=== PATIENT | male | born 1965 | race Caucasian/White ===

== ENCOUNTER 2018-10-27 15:28 | Inpatient (IN) ==
[2018-10-27] MEDS ORDERED: *HR* Labetalol 20 MG/4 ML SYRINGE IVP ONE (16:23)
[2018-10-27] MEDS ORDERED: Isovue-370 500 ML BOTTLE IVP ONE (16:23)
--- NOTE | 2018-10-27 16:37 | Emergency Department Note ---
Disposition Clinical Impression: Hypertensive urgency, Hypertensive urgency, malignant Disposition: Admitted As Inpatient Condition: Fair Referrals: NONE,PCP [Primary Care Provider] - Forms: ED Satisfaction Letter, Work/School Release Time of Disposition: 19:26 General Adult HPI - General Chief complaint: ED General Medical Stated complaint: HTN sent from PCP Time Seen by Provider: 10/27/18 16:05 Source: patient Limitations: no limitations Nursing Notes Reviewed: Yes Vital Signs Reviewed: Yes - History of Present Illness HPI Narrative: Patient presented emergency department with chief complaint of high blood pressure. The patient states that for about a week and a half he had noticed some discomfort in between his shoulder blades he states it first started when he was on the treadmill and working out, he had pain peripherally by his right shoulder blade he thought maybe he had just tweaked it a little bit. He states that over the last week and a half he has continued to have pain radiating between his shoulder blades which she cannot really associate with any thing. The patient states that he has even woken up from sleep because of pain between his shoulder blades. The patient states that he has had no chest pain no shortness of breath no exertional symptoms and in fact has been working out regularly without developing any symptoms during this. The patient denies headache neck pain dizziness weakness speech difficulty abdominal pain black or bloody stool leg pain and leg swelling. He does report that he has had some developing mild paresthesias in all of his extremities which just seems to come and go. He states he cannot associate that with anything he states he just feels like a brief pins and needle sensation in random spots. He states that he decided to go get it checked out today, and he went to urgent care because he does not have a doctor does not take any medications, and states that when he got there they checked his blood pressure and multiple readings were over 230/120. He states he has never had anything like that in the past and that is something very unusual for him. No family history of aneurysms no family history of young people with heart disease. He is not a smoker. He does not drink out all daily and does not use street drugs. Denies any swelling of the lower extremities denies any recent travel denies any dietary changes or increased caffeine intake. 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 Review of Systems: As Per HPI Past Medical History - Past Medical History Medical history: Reports: GERD, hypertension - Social History Smoking Status: Never smoker Smokeless Tobacco Status: No Alcohol use: Reports: occasionally Physical Exam - General Limitations: no limitations General appearance: alert, in no apparent distress - Head Head exam: atraumatic, normocephalic - Eye Eye exam: Present: normal appearance, PERRL, EOMI - ENT ENT exam: normal exam, normal oropharynx - Neck Neck exam: Present: normal inspection, full ROM, trachea midline. Absent: tenderness, meningismus, thyromegaly - Chest Chest inspection: Present: normal inspection, symmetric chest wall rise. Absent: tenderness - Respiratory Respiratory exam: Present: normal lung sounds bilaterally. Absent: respiratory distress, wheezes - Cardiovascular Cardiovascular exam: Present: regular rate, normal rhythm, normal heart sounds. Absent: systolic murmur, diastolic murmur, rubs, gallop, JVD - Abdominal Exam Abdominal exam: Present: soft, Non-Tender, other (No palpable or pulsatile mass) - Extremities Exam Extremities exam: Present: normal inspection, full ROM, normal capillary refill. Absent: tenderness, pedal edema - Expanded Lower Extremity Exam Neurovascular/Tendon exam: Present: normal capillary refill. Absent: pulse deficit, motor deficit, sensory deficit, tendon deficit, extremity cold to touch, pallor - Back Exam Back exam: Present: normal inspection, full ROM, other (Unable to reproduce reported discomfort in between shoulder blades with palpation or with movement of his extremities or back). Absent: tenderness, CVA tenderness (R), CVA tenderness (L) - Neurological Exam Neurological exam: Present: alert, oriented X3, CN II-XII intact, normal gait - Psychiatric Psychiatric exam: Present: normal affect, normal mood - Skin Skin exam: Present: warm, dry, intact, normal color. Absent: rash, cyanosis, diaphoresis - Other Other exam information: Blood pressures were checked by myself on both extremities of the upper extremities, and are both significantly elevated, right side was 239/120, left side was 245/124, no significant difference Course Vital Signs Temperature 97.7 F 10/27/18 15:32 Pulse Rate 70 10/27/18 15:32 Respiratory Rate 16 10/27/18 15:32 Blood Pressure 230/124 10/27/18 15:32 O2 Sat by Pulse Oximetry 97 10/27/18 15:32 Temperature 97.7 F 10/27/18 15:32 Pulse Rate 65 10/27/18 18:06 Respiratory Rate 16 10/27/18 18:06 Blood Pressure 240/128 10/27/18 19:17 O2 Sat by Pulse Oximetry 97 10/27/18 18:06 Oxygen Delivery Oxygen Delivery Room Air Medical Decision Making - MDM Narrative Medical decision making narrative: Patient is no chest pain or shortness of breath no dizziness to weakness he does have nonreproducible discomfort in between his shoulder blades, and secondary to significant hypertension, a CT aortic dissection protocol was ordered he however states that the pain is really not that bad currently states it is there but he is nontoxic in appearance is not diaphoretic is awake E smiling he is interactive, clinically less suspicious thereof however with significant hypertension and pain between his shoulder blades, evaluation of the aorta was felt to be prudent at this time. His EKG as interpreted by myself was a normal sinus rhythm, no evidence of acute ST elevation or ST depression or T-wave inversion, single Q-wave in lead 3, no Q waves in 2 or aVF, when compared to prior EKG from 03/23/2009, there is no significant difference. Intervals are within acceptable limits QTc is 409 QRS duration 106 [place] interval of 180. Patient had an IV placed, no aspirin, secondary to concerns for potential aortic pathology. Patient given IV labetalol for hypertension. CBC basic metabolic profile cardiac enzymes were all within acceptable limits. CT dissection protocol showed no aneurysm no dissection no acute findings as interpreted by radiology. After IV labetalol, patient initially had some improvement of blood pressure, down to 199/102, however his blood pressure again began to increase I gave him oral lisinopril hydrochlorothiazide, blood pressures remained initially still persistently elevated although slightly improved again in the 199/92, followed by a 200/104, however blood pressures again began to increase to 248/120, he was then initiated on a Cardene drip for malignant hypertension/accelerated hypertension and was admitted to the hospital for further evaluation and manage ment. Total critical care time as provided by myself excluding any procedures performed is 30 minutes - Lab Data Lab results reviewed: Yes I reviewed the patient's lab results. Result diagrams: 10/27/18 16:44 10/27/18 16:44 Lab Results 10/27/18 10/27/18 Range/Units 16:44 16:44 WBC 7.3 (4.3-11.1) K/mcL RBC 5.13 (4.19-5.50) M/mcL Hgb 15.6 (12.9-16.9) g/dL Hct 46.2 (37.5-50.1) % MCV 90.1 (83.0-100.0) fL MCH 30.4 (28.0-33.3) pg MCHC 33.8 (31.6-35.5) g/dL RDW 13.4 (11.5-14.5) % Plt Count 226 (140-400) K/mcL MPV 9.5 (9.4-12.4) fL Immature Gran % 0.3 (0-4) % Seg Neutrophils % 48.2 % Lymphocytes % 37.1 % Monocytes % 10.8 % Eosinophils % 2.6 % Basophils % 1.0 % Neutrophils # 3.5 (1.6-8.9) K/mcL Lymphocytes # 2.7 (0.6-4.6) K/mcL Monocytes # 0.8 (0.0-1.3) K/mcL Eosinophils # 0.2 (0.0-0.6) K/mcL Basophils # 0.1 (0.0-0.2) K/mcL Sodium 137 (136-145) mEq/L Potassium 3.6 (3.5-5.1) mEq/L Chloride 102 (98-107) mEq/L Carbon Dioxide 27 (23-29) mEq/L BUN 18 (6-20) mg/dL Creatinine 1.00 (0.70-1.30) mg/dL Est GFR ( Amer) > 60 (> 60) Est GFR (Non-Af Amer) > 60 (> 60) BUN/Creatinine Ratio 18 (6-26) Glucose 111 H (70-105) mg/dL Calculated Osmolality 287 (280-300) Calcium 9.5 (8.6-10.3) mg/dL Troponin I < 0.03 (< 0.04) ng/mL - Radiology Data Radiology results reviewed: Yes I reviewed the patient's radiology results.
[2018-10-27 17:07] LABS: Basophils # 0.1 K/mcL (0.0-0.2); Eosinophils # 0.2 K/mcL (0.0-0.6); Eosinophils % 2.6 %; Hematocrit 46.2 % (37.5-50.1); Hemoglobin 15.6 g/dL (12.9-16.9); Immature Granulocytes % 0.3 % (0-4); Lymphocytes # 2.7 K/mcL (0.6-4.6); Lymphocytes % 37.1 %; Mean Corpuscular HGB Conc 33.8 g/dL (31.6-35.5); Mean Corpuscular Hemoglobin 30.4 pg (28.0-33.3); Mean Corpuscular Volume 90.1 fL (83.0-100.0); Mean Platelet Volume 9.5 fL (9.4-12.4); Monocytes # 0.8 K/mcL (0.0-1.3); Monocytes % 10.8 %; Neutrophils # 3.5 K/mcL (1.6-8.9); Platelet Count 226 K/mcL (140-400); Red Blood Count 5.13 M/mcL (4.19-5.50); Red Cell Distribution Width 13.4 % (11.5-14.5); Segmented Neutrophils % 48.2 %; White Blood Count 7.3 K/mcL (4.3-11.1)
[2018-10-27 17:30] LABS: BUN/Creatinine Ratio 18 (6-26); Blood Urea Nitrogen 18 mg/dL (6-20); Calcium 9.5 mg/dL (8.6-10.3); Carbon Dioxide 27 mEq/L (23-29); Chloride 102 mEq/L (98-107); Glucose 111 mg/dL (70-105); Osmolality,Calculated 287 (280-300); Potassium 3.6 mEq/L (3.5-5.1); Sodium 137 mEq/L (136-145); Troponin I < 0.03 ng/mL (< 0.04); eGFR For African Americans > 60 (> 60); eGFR For Non-African Americans > 60 (> 60)
[2018-10-27] MEDS ORDERED: Lisinopril-HCTZ 20-12.5mg TABLET PO STA (17:48)
[2018-10-27] MEDS: niCARdipine 20 MG in 0.9 % Sodium Chloride 192 ML IVC SCH (21:00)
[2018-10-28] MEDS ORDERED: Naloxone 0.4 MG/ML INJ IVP PRN (02:59)
--- NOTE | 2018-10-28 03:46 | Internal Med History&Physical ---
Date of Encounter: 10/27/18 Time of Encounter: 22:30 Internal Medicine - H&P: HPI Chief complaint: Hypertensive urgency Admitted From: Emergency Dept Plans for Post Hospital Care: Home History of present illness: Mr. Kolb is a 53 year old male Patient presented to the emergency room with elevated blood pressure. He states that he has been working out on a treadmill and he has noticed a slight pain in between his shoulder blades. He is previously healthy, denying significant past medical history aside from reflux disease. The pain is not improved and he was worried that it could be something wrong with his heart. He went to an urgent care to be evaluated. While there his blood pressure was significantly tiago vated, and he was advised to go to emergency room for further evaluation. In the emergency room patient's blood pressure initially was 230/124. His other vital signs were within normal limits. CBC within normal limits BMP within normal limits Initial troponin undetectable CT chest dissection study was ordered that showed no acute vascular findings, no aortic aneurysm and no pulmonary process or intra-abdominal process. Patient was given a 20 mg dose of labetalol as well as a dose of lisinopril hydrochlorothiazide 2012 0.5 mg. His blood pressure did not improve. He was started on a Cardene drip and sent to the medical floor for further management. Upon my evaluation patient is resting comfortably in the hospital bed in no acute distress. He states that his shoulder pain has resolved. He denies chest pain, abdominal pain, nausea, vomiting, diarrhea, constipation and vision changes. He denies shortness of breath. Upon further questioning, patient does admit to drinking 2 monster energy drinks daily which he has done for the last 4 years every day. He does not smoke and drinks only on the weekends. He denies other drug use. He does not normally take medications but does occasionally take a Prevacid for reflux. He has a family history of diabetes in his father, and his mother smokes. He denies other significant family medical history. He is a full code. Past Med Surg Social Fam HX - Past Medical History Medical history: GERD, hypertension - Past Surgical History Additional surgical history: pyloric stenosis - Social History Smoking Status: Former smoker Smokeless Tobacco Status: No Alcohol use: occasionally Drug use: none Internal Medicine - H&P: Meds Lansoprazole [Prevacid] 15 mg PO DAILY PRN 10/27/18 [History] Allergy/AdvReac Type Severity Reaction Status Date / Time penicillin G Allergy Anaphylaxis Verified 05/12/18 16:14 All Systems PM: A 10-system review of systems was performed and is negative for pertinent findings except as documented above in the HPI. - Constitutional Vitals: Temp Pulse Resp BP Pulse Ox 98 F 60 18 164/96 99 10/27/18 22:04 10/28/18 03:00 10/28/18 03:00 10/28/18 03:00 10/28/18 03:00 General appearance: Present: cooperative, A&O X 3, pleasant, no acute distress, answers questions appropriately Exam: - - Head Head exam: Present: normal inspection - Eye Eye exam: Present: EOMI, normal appearance - Respiratory Respiratory exam: Present: CTAB. Absent: rales, respiratory distress, rhonchi, wheezes - Cardiovascular Cardiovascular exam: Present: RRR. Absent: diastolic murmur, systolic murmur - GI/Abdominal GI/Abdominal exam: Present: normal bowel sounds, soft. Absent: tenderness - Extremities Exam Extremities exam: Present: warm, radial pulses palpable and symmetrical. Absent: calf tenderness, pedal edema, tenderness - Neurological Exam Neurological exam: Present: facial droop, speech deficit. Absent: motor sensory deficit, no focal deficits, strengths equal and symetr throughout - Skin Skin exam: Present: dry, normal color, warm Internal Med - H&P Results - Labs CBC & Chem 7: 10/27/18 16:44 10/27/18 16:44 Labs: Short CBC 10/27/18 Range/Units 16:44 WBC 7.3 (4.3-11.1) K/mcL Hgb 15.6 (12.9-16.9) g/dL Hct 46.2 (37.5-50.1) % Plt Count 226 (140-400) K/mcL Neutrophils # 3.5 (1.6-8.9) K/mcL BMP 10/27/18 16:44 Sodium 137 Potassium 3.6 Chloride 102 Carbon Dioxide 27 BUN 18 Creatinine 1.00 Glucose 111 H Calcium 9.5 Cardiac Enzymes 10/27/18 Range/Units 16:44 Troponin I < 0.03 (< 0.04) ng/mL - Impressions ITS Impressions CT Dissection 10/27/18 16:23 IMPRESSION: No acute vascular findings. No aortic aneurysm. No acute pulmonary process. No acute intra-abdominal process. D/ / 10/27/2018 18:35:48 Ever Mcdonald MD / cherrie Interpreting Provider: Ever Mcdonald MD - Assessment and Plan (1) Hypertensive urgency Current Visit: Yes Status: Acute Assessment and plan: Patient has not had issues with his blood pressure in the past. He says that he has had elevated readings, but they always improved with a second check. He does not take medicines for blood pressure home. He does admit to drinking a high amount of caffeine energy drinks for breakfast and also at lunch. Continue Cardene drip Monitor blood pressures closely (2) Caffeine use Current Visit: Yes Status: Acute Assessment and plan: Patient states that he drinks 2 monster energy drinks every day and has done so for several years. Each can is about 160 mg of caffeine. Caffeine intake could be a part of his elevated blood pressure. Patient already on board with removing these energy drinks from his diet Continue to monitor blood pressure as above (3) Upper back pain Current Visit: Yes Status: Acute Assessment and plan: Now resolved. Initial concerns for possible dissection considering patients elevated blood pressure. CT dissection study negative for abnormalities. Continue to monitor (4) DVT prophylaxis Current Visit: Yes Status: Acute Assessment and plan: SCDs - Time Spent With Patient Total time spent is greater than 50% in coordination of care (as documented) at patient's floor/unit and/or counseling patient: Greater than 35 minutes
[2018-10-28 07:09] LABS: Hematocrit 49.2 % (37.5-50.1); Hemoglobin 16.5 g/dL (12.9-16.9); Mean Corpuscular HGB Conc 33.5 g/dL (31.6-35.5); Mean Corpuscular Hemoglobin 30.3 pg (28.0-33.3); Mean Corpuscular Volume 90.4 fL (83.0-100.0); Mean Platelet Volume 9.2 fL (9.4-12.4); Platelet Count 233 K/mcL (140-400); Red Blood Count 5.44 M/mcL (4.19-5.50); Red Cell Distribution Width 13.6 % (11.5-14.5); White Blood Count 6.5 K/mcL (4.3-11.1)
[2018-10-28] MEDS: niCARdipine 20 MG in 0.9 % Sodium Chloride 192 ML IVC SCH ×4 (07:27→10:06)
[2018-10-28 07:31] LABS: BUN/Creatinine Ratio 16 (6-26); Blood Urea Nitrogen 16 mg/dL (6-20); Calcium 9.8 mg/dL (8.6-10.3); Carbon Dioxide 28 mEq/L (23-29); Chloride 101 mEq/L (98-107); Glucose 108 mg/dL (70-105); Osmolality,Calculated 290 (280-300); Potassium 3.9 mEq/L (3.5-5.1); Sodium 139 mEq/L (136-145); Troponin I < 0.03 ng/mL (< 0.04); eGFR For African Americans > 60 (> 60); eGFR For Non-African Americans > 60 (> 60)
[2018-10-28] MEDS: hydroCHLOROthiazide 25 MG TABLET PO SCH (08:49)
--- NOTE | 2018-10-28 11:17 | Internal Med Progress Note ---
Hospitalist Progress Note - Encounter Date of Encounter: 10/28/18 Time of Encounter: 08:00 - Subjective Interval History: Patient was seen and examined at bedside. Reports that he has had multiple elevated blood pressure readings however semithin placed on medications. He does not have a primary care physician and would like to be referred to a primary care physician. I discussed his blood pressure readings. He denies headache, vision changes, chest pain or shortness of breath. Denies syncopal episodes or loss of consciousness. - Exam Vitals: Temp Pulse Resp BP Pulse Ox 97.8 F 61 18 175/97 99 10/28/18 07:45 10/28/18 07:45 10/28/18 07:45 10/28/18 07:45 10/28/18 03:00 Exam: General: Patient is alert, oriented, no acute distress, obese Head: atraumatic, normocephalic, Eye: normal appearance, PERRL, no scleral icterus, no conjunctival injection ENT: mucous membranes moist, normal external ear exam Neck: normal inspection, trachea midline, full ROM, no carotid bruits Chest: normal inspection, symmetric chest rise Respiratory: Good respiratory effort. Bilateral breath sounds are clear without wheezing, crackles, or rhonchi. Cardiovascular: Regular rate and rhythm. s1 and s2 No clicks, rubs, gallops, or murmors. Abdomen: Bowel sounds present normoactive x-4 quadrants. Abdomen is soft, nondistended. no Epigastric tenderness. No guarding or rebound. No organomegaly noted, obese musculoskeletal: Spontaneously moving all extremities. no edema, no calf tenderness Skin: warm, dry, intact. Neuro: Alert and oriented x3, no focal deficit Psych: Patient's affect is normal - Assessment and Plan (1) Hypertensive urgency Current Visit: Yes Status: Acute Assessment and Plan: hypertensive urgency- was tapered off of nicardipine drip transitioned to losartan and HCTZ along with nifidipine TID TTE pending continue tele monitoring will adjust BP mediations as per vitals (2) Upper back pain Current Visit: Yes Status: Acute Assessment and Plan: Now resolved- likely musculoskeletal in nature ( picks up heavy objects) Initial concerns for possible dissection considering patients elevated blood pressure. CT dissection study negative for abnormalities. Continue to monitor (3) Caffeine use Current Visit: Yes Status: Acute Assessment and Plan: Patient states that he drinks 2 monster energy drinks every day and has done so for several years. Each can is about 160 mg of caffeine. Caffeine intake could be a part of his elevated blood pressure. Patient already on board with removing these energy drinks from his diet (4) DVT prophylaxis Current Visit: Yes Status: Acute Assessment and Plan: heparin sc - Time Spent with Patient Total time spent is greater than 50% in coordination of care (as documented) at patient's floor/unit and/or counseling patient: Internal Medicine: Result - Labs CBC & Chem 7: 10/28/18 06:27 10/28/18 06:27 Labs: Short CBC 10/27/18 10/28/18 Range/Units 16:44 06:27 WBC 7.3 6.5 (4.3-11.1) K/mcL Hgb 15.6 16.5 (12.9-16.9) g/dL Hct 46.2 49.2 (37.5-50.1) % Plt Count 226 233 (140-400) K/mcL Neutrophils # 3.5 (1.6-8.9) K/mcL BMP 10/27/18 10/28/18 16:44 06:27 Sodium 137 139 Potassium 3.6 3.9 Chloride 102 101 Carbon Dioxide 27 28 BUN 18 16 Creatinine 1.00 1.00 Glucose 111 H 108 H Calcium 9.5 9.8 Cardiac Enzymes 10/27/18 10/28/18 Range/Units 16:44 06:27 Troponin I < 0.03 < 0.03 (< 0.04) ng/mL - Impressions Impressions CT Dissection 10/27/18 16:23 IMPRESSION: No acute vascular findings. No aortic aneurysm. No acute pulmonary process. No acute intra-abdominal process. D/ / 10/27/2018 18:35:48 Ever Mcdonald MD / cherrie Interpreting Provider: Ever Mcdonald MD Consult Discharge Plan - Plan Referrals: NONE,PCP [Primary Care Provider] -
[2018-10-28] MEDS: NIFEdipine 10 MG CAPSULE PO SCH ×3 (11:18→22:03)
[2018-10-28] MEDS: *HR* Heparin 5,000 UNIT/ML VIAL SQ SCH ×2 (13:50→22:03)
[2018-10-29] MEDS: *HR* Heparin 5,000 UNIT/ML VIAL SQ SCH ×2 (05:34→13:26)
[2018-10-29] MEDS: hydroCHLOROthiazide 25 MG TABLET PO SCH (08:53)
--- NOTE | 2018-10-29 11:13 | Discharge Summary ---
- NOTES TO OUTPATIENT PROVIDER Notes to Outpatient Provider: stephen narvaez with PCP and take BP log with you for further adjustment of BP medications. Date of Encounter: 10/29/18 Time of Encounter: 08:09 - Discharge Diagnosis (1) Hypertensive urgency Priority: Primary Status: Acute (2) Upper back pain Priority: Secondary Status: Acute (3) Caffeine use Priority: Secondary Status: Acute (4) DVT prophylaxis Priority: Secondary Status: Acute Hospital course: "Mr. Kolb is a 53 year old male Patient presented to the emergency room with elevated blood pressure. He states that he has been working out on a treadmill and he has noticed a slight pain in between his shoulder blades. He is previously healthy, denying significant past medical history aside from reflux disease. The pain is not improved and he was worried that it could be something wrong with his heart. He went to an urgent care to be evaluated. While there his blood pressure was significantly elevat ed, and he was advised to go to emergency room for further evaluation. In the emergency room patient's blood pressure initially was 230/124. His other vital signs were within normal limits. CBC within normal limits BMP within normal limits Initial troponin undetectable CT chest dissection study was ordered that showed no acute vascular findings, no aortic aneurysm and no pulmonary process or intra-abdominal process. Patient was given a 20 mg dose of labetalol as well as a dose of lisinoprilhydrochlorothiazide 2012 0.5 mg. His blood pressure did not improve. He was started on a Cardene drip and sent to the medical floor for further management. Upon my evaluation patient is resting comfortably in the hospital bed in no acute distress. He states that his shoulder pain has resolved. He denies chest pain, abdominal pain, nausea, vomiting, diarrhea, constipation and vision changes. He denies shortness of breath. Upon further questioning, patient does admit to drinking 2 monster energy drinks daily which he has done for the last 4 years every day. He does not smoke and drinks only on the weekends. He denies other drug use. He does not normally take medications but does occasionally take a Prevacid for reflux. He has a family history of diabetes in his father, and his mother smokes. He denies other significant family medical history. He is a full code." Patient presented with above presentation and had above ED course. As above CT dissection study in the emergency department was negative. He was started on nicardipine drip with improvement of his blood pressure. He was started on losartan 50 mg and hydrochlorothiazide 25 mg with improvement of his blood pressure. Blood pressure cuff prescription was provided to the patient and he is to take log of his blood pressure and take it to primary care physician for further adjustment of his blood pressure medications. Echocardiogram was performed results below. EKG was sinus rhythm with QTC of 409. he tolerated both BP medications while in the hospital without any ADRs. nursing staff provided patient with PCP appointment. he was counseled on cessation of caffeine intake. CTA dissection study: CT/CT CTA Dissection Study IMPRESSION: No acute vascular findings. No aortic aneurysm. No acute pulmonary process. No acute intra-abdominal process. TTE:LVEF 60-65%. Normal LV chamber size and function. Mild concentric left ventricular hypertrophy. Mild left ventricular diastolic dysfunction. Normal right ventricular structure and function. No evidence of a PFO by color Doppler. Unable to estimate RVSP due to lack of TR jet. Discharge discussed with: patient - Time Spent with Patient Total time spent providing and/or coordinating discharge services: Time spent: Greater than 30 minutes (35) - Discharge Medications Prescriptions: New Losartan Potassium [Cozaar] 50 mg PO DAILY #30 tab hydroCHLOROthiazide [Hydrochlorothiazide] 25 mg PO DAILY #30 tablet Blood Pressure Test Kit-Wrist [Blood Pressure Kit] 1 each MC BID #1 kit Continued Lansoprazole [Prevacid] 15 mg PO DAILY PRN PRN Reason: Heartburn Home Medications: Lansoprazole [Prevacid] 15 mg PO DAILY PRN 10/27/18 [History] Blood Pressure Test Kit-Wrist [Blood Pressure Kit] 1 each MC BID #1 kit 10/29/18 [Rx] Losartan Potassium [Cozaar] 50 mg PO DAILY #30 tab 10/29/18 [Rx] hydroCHLOROthiazide [Hydrochlorothiazide] 25 mg PO DAILY #30 tablet 10/29/18 [Rx] Allergies/Adverse Reactions: Allergy/AdvReac Type Severity Reaction Status Date / Time penicillin G Allergy Anaphylaxis Verified 10/28/18 17:04 Date of admission: 10/27/18 21:19 Primary care physician: PCP NONE - Constitutional Vitals: Temp Pulse Resp BP Pulse Ox 97.9 F 63 14 148/90 97 10/29/18 05:34 10/29/18 05:34 10/29/18 05:34 10/29/18 05:34 10/29/18 05:34 General appearance: Present: cooperative, A&O X 3, pleasant, no acute distress, answers questions appropriately Exam: General: Patient is alert, oriented, no acute distress, obese Head: atraumatic, normocephalic, Eye: normal appearance, PERRL, no scleral icterus, no conjunctival injection ENT: mucous membranes moist, normal external ear exam Neck: normal inspection, trachea midline, full ROM, no carotid bruits Chest: normal inspection, symmetric chest rise Respiratory: Good respiratory effort. Bilateral breath sounds are clear without wheezing, crackles, or rhonchi. Cardiovascular: Regular rate and rhythm. s1 and s2 No clicks, rubs, gallops, or murmors. Abdomen: Bowel sounds present normoactive x-4 quadrants. Abdomen is soft, nondistended. no Epigastric tenderness. No guarding or rebound. No organomegaly noted, obese musculoskeletal: Spontaneously moving all extremities. no edema, no calf tenderness Skin: warm, dry, intact. Neuro: Alert and oriented x3, no focal deficit Psych: Patient's affect is normal - Patient Status Disposition: Home, Self-Care Condition: Fair Functional capacity at discharge: independent ambulation Overall status at discharge: patient is back to baseline - Discharge Instructions Instructions: Hypertensive Crisis (DC) Follow Up With: Grover Hightower MD [Partnered Physician] - 11/04/18 3:45 pm - Diet and Activity Activity: increase activity as tolerated Diet: low salt diet
[2018-10-29] MEDS ORDERED: amLODIPine 5 MG TABLET PO ONE (12:57)
[2018-10-29 14:17] VITALS: BP 146/83
--- NOTE | 2018-10-30 17:13 | Electrocardiograph Report ---
[facility] Test Date: 2018-10-27 Pat Name: Christopher Kolb Department: 104 Room: 3A47 Gender: M White [employer]her Piler: : 1965 Requested By: Vinh Juan Order Number: [id number] Reading MD: Paolo Pierre Measurements Intervals [place] Rate: 64 P: 16 MO: 180 QRS: 32 QRSD: 106 T: 30 QT: 399 QTc: 409 Interpretive Statements SINUS RHYTHM Electronically Signed On 10-30-2018 17:12:39 EDT by Paolo Pierre
== END 2018-10-29 18:17 | disposition home or self-care (01) | DRG 305 ==
LOC: EMEROOARM 15:28 → 2NNU 21:19 → 3ANU 10-28 15:43
PROVIDERS: ADMIT Family Medicine; ATTEND Family Medicine